=== PATIENT | female | born 1975 | race Caucasian/White ===

== ENCOUNTER 2020-03-01 11:18 | Emergency (ER) | payer SELFPAY ==
--- NOTE | 2020-03-01 11:51 | ER Document Report ---
ED Medical Screen (RME) - General Chief Complaint: Dizziness Stated Complaint: DIZZINESS Time Seen by Provider: 03/01/20 11:46 Notes: Patient is a 44-year-old female presents emergency department with a chief complaint of dizziness that started 5 days ago. Patient has also felt nauseous. Patient takes Phenergan on a regular basis. Patient is concerned for COVID-19. States that she also feels sometimes short of breath. Exam: Alert and oriented. I have greeted and performed a rapid initial assessment of this patient. A comprehensive ED assessment and evaluation of the patient, analysis of test results and completion of medical decision making process will be conducted by an additional ED providers. - Related Data Allergies/Adverse Reactions: codeine Allergy (Verified 03/01/20 11:46) dexamethasone [From Decadron] Allergy (Verified 03/01/20 11:46) latex Allergy (Verified 03/01/20 11:46) oxycodone [From OxyContin] Allergy (Verified 03/01/20 11:46) Physical Exam - Vital signs Vitals: Temp Pulse Resp BP Pulse Ox 98.2 F 72 18 125/65 98 03/01/20 11:47 03/01/20 11:47 03/01/20 11:47 03/01/20 11:47 03/01/20 11:47 Course - Vital Signs Vital signs: Temp Pulse Resp BP Pulse Ox 98.2 F 72 18 125/65 98 03/01/20 11:47 03/01/20 11:47 03/01/20 11:47 03/01/20 11:47 03/01/20 11:47
--- NOTE | 2020-03-01 12:34 | RADIOLOGY REPORT (SQ) ---
EXAM DESCRIPTION: CHEST SINGLE VIEW IMAGES COMPLETED DATE/TIME: 03/01/2020 12:26 pm REASON FOR STUDY: shortness of breath COMPARISON: None. EXAM PARAMETERS: NUMBER OF VIEWS: One view. TECHNIQUE: Single frontal radiographic view of the chest acquired. RADIATION DOSE: NA LIMITATIONS: None. FINDINGS: LUNGS AND PLEURA: No opacities, masses or pneumothorax. No pleural effusion. MEDIASTINUM AND HILAR STRUCTURES: No masses. Contour normal. HEART AND VASCULAR STRUCTURES: Heart normal in size. Normal vasculature. BONES: No acute findings. HARDWARE: None in the chest. OTHER: No other significant finding. IMPRESSION: NO ACUTE RADIOGRAPHIC FINDING IN THE CHEST. TECHNICAL DOCUMENTATION: JOB ID: [id number] 2010 [employer]- All Rights Reserved Reading location - IP/workstation name: [email or web address]
[2020-03-01 12:56] LABS: A TYPE INFLUENZA AG NEGATIVE (NEGATIVE); B INFLUENZA AG NEGATIVE (NEGATIVE)
[2020-03-01 13:56] LABS: APPEARANCE,URINE SLIGHTLY-CLOUDY; BILIRUBIN,URINE NEGATIVE (NEGATIVE); COLOR,URINE YELLOW; GLUCOSE, URINE NEGATIVE (NEGATIVE); KETONES,URINE NEGATIVE (NEGATIVE); LEUKOCYTE ESTERASE,URINE NEGATIVE (NEGATIVE); NITRITE,URINE NEGATIVE (NEGATIVE); PROTEIN,URINE NEGATIVE (NEGATIVE); URINE SPECIFIC GRAVITY 1.015; UROBILINOGEN,URINE NEGATIVE mg/dL (<2.0)
--- NOTE | 2020-03-01 16:35 | ER Document Report ---
Entered by SUNG SALAZRA SCRIBE 03/01/20 1243 Acting as scribe for:ANGELICA HERNANDEZ MD ED General - General Chief Complaint: Dizziness Stated Complaint: DIZZINESS Time Seen by Provider: 03/01/20 11:46 Information source: Patient Notes: This 44 year old female patient presents to the emergency department today with complaints of a sore throat, sinus congestion, vertigo, dizziness, and a mild non-productive cough the past x5 days. Patient also reports diarrhea the last x24 hours. Patient states she works at [employer] and has possible covid exposure. Patient states she has been taking dayquil, nyquil, antacid, phenergan, and meclizine at home. - Related Data Allergies/Adverse Reactions: codeine Allergy (Verified 03/01/20 11:46) dexamethasone [From Decadron] Allergy (Verified 03/01/20 11:46) latex Allergy (Verified 03/01/20 11:46) oxycodone [From OxyContin] Allergy (Verified 03/01/20 11:46) Past Medical History - General Information source: Patient - Social History Smoking Status: Never Smoker Cigarette use (# per day): No Family History: Reviewed & Not Pertinent Neurological Medical History: Reports: Hx Migraine Review of Systems - Review of Systems Constitutional: No symptoms reported EENT: See HPI, Throat pain, Vertigo, Other - sinus congestion Cardiovascular: See HPI, Dizziness Respiratory: See HPI, Cough - mild. denies: Sputum Gastrointestinal: See HPI, Diarrhea Genitourinary: No symptoms reported Female Genitourinary: No symptoms reported Musculoskeletal: No symptoms reported Skin: No symptoms reported Hematologic/Lymphatic: No symptoms reported Neurological/Psychological: No symptoms reported -: Yes All other systems reviewed and negative Physical Exam - Vital signs Vitals: Temp Pulse Resp BP Pulse Ox 98.2 F 72 18 125/65 98 03/01/20 11:47 03/01/20 11:47 03/01/20 11:47 03/01/20 11:47 03/01/20 11:47 - General General appearance: Alert, Other - Appears non-toxic - HEENT Head: Normocephalic, Atraumatic Eyes: Normal Pupils: PERRL Ears: Normal External canal: No: Erythema Tympanic membrane: Bulging - bilateral, Serous effusion - bilateral. No: Perforation Notes: Lateral gaze nystagmus. - Respiratory Respiratory status: No respiratory distress Chest status: Nontender Breath sounds: Normal Chest palpation: Normal - Cardiovascular Rhythm: Regular Heart sounds: Normal auscultation Murmur: No - Abdominal Inspection: Normal Distension: No distension Bowel sounds: Normal Tenderness: Nontender - Extremities General upper extremity: Normal inspection, Normal ROM General lower extremity: Normal inspection, Normal ROM. No: Edema - Neurological Neuro grossly intact: Yes Cognition: Normal Orientation: AAOx4 Jay Coma Scale Eye Opening: Spontaneous [place] Coma Scale Verbal: Oriented [place] Coma Scale Motor: Obeys Commands [place] Coma Scale Total: 15 Speech: Normal Motor strength normal: LUE, RUE, LLE, RLE Sensory: Normal - Psychological Associated symptoms: Normal affect, Normal mood - Skin Skin Temperature: Warm Skin Moisture: Dry Skin Color: Normal Course - Re-evaluation Re-evalutation: 03/01/20 16:21 Patient resting comfortably at this time. - Vital Signs Vital signs: Temp Pulse Resp BP Pulse Ox 98.2 F 72 18 125/65 98 03/01/20 11:47 03/01/20 12:00 03/01/20 12:00 03/01/20 12:00 03/01/20 12:00 03/01/20 16:21 Vital signs are stable. - Laboratory Laboratory results interpreted by me: Chest X-Ray 03/01/20 11:50 IMPRESSION: NO ACUTE RADIOGRAPHIC FINDING IN THE CHEST. No acute process on chest x-ray. 03/01/20 16:22 Laboratory results shows negative strep negative influenza AMB and Covid test pending. 03/01/20 16:23 urinalysis shows no acute process. - Diagnostic Test Radiology reviewed: Image reviewed Discharge - Discharge Clinical Impression: Suspected COVID-19 virus infection, URI (upper respiratory infection), Diarrhea Condition: Stable Disposition: HOME, SELF-CARE Instructions: Upper Respiratory Illness ([facility]), Vertigo ([facility]), Antinausea Medication ([facility]), Meclizine ([facility]), Fever ([facility]), Viral Syndrome ([facility]), COVID-19 Guidance for Persons Under Investigation Prescriptions: Amoxicillin 1 tab PO TID #30 tab Meclizine HCl [Antivert 25 mg Tablet] 25 mg PO TID PRN #21 tablet PRN Reason: Famotidine [Pepcid] 20 mg PO DAILY #20 tablet Ondansetron [Zofran Odt 4 mg Tablet] 1 - 2 tab PO Q4H PRN #15 tab.rapdis PRN Reason: For Nausea/Vomiting Forms: Return to Work I personally performed the services described in the documentation, reviewed and edited the documentation which was dictated to the scribe in my presence, and it accurately records my words and actions.
[2020-03-01 16:48] VITALS: BP 117/72
== END 2020-03-01 16:50 | disposition home or self-care (01) ==
LOC: ER 11:18
DX: J06.9 Acute upper respiratory infection, unspecified (principal); J02.9 Acute pharyngitis, unspecified; R09.89 Other specified symptoms and signs involving the circulatory and respiratory systems; R42 Dizziness and giddiness; R05 Cough; R19.7 Diarrhea, unspecified; H55.00 Unspecified nystagmus; Z88.6 Allergy status to analgesic agent; Z88.5 Allergy status to narcotic agent; Z91.040 Latex allergy status; Z88.8 Allergy status to other drugs, medicaments and biological substances; Z20.828 Contact with and (suspected) exposure to other viral communicable diseases
CPT/HCPCS: 99284; 87070; 87880; 87635; 81001; 87804; 71045; C9803

== ENCOUNTER 2020-05-08 09:52 | Emergency (ER) | payer SELFPAY ==
[2020-05-08] MEDS ORDERED: NORMAL SALINE 1000 ML 1,000 ML IV ONE (10:13)
[2020-05-08] MEDS ORDERED: ONDANSETRON HCL INJ/PF 4 MG/2 ML SDV IV ONE (10:13)
[2020-05-08] MEDS ORDERED: MORPHINE SULFATE 10 MG/ML INJ IV ONE ×2 (10:13→12:13)
--- NOTE | 2020-05-08 10:17 | ER Document Report ---
ED Medical Screen (RME) - General Chief Complaint: Nausea/Vomiting/Diarrhea Stated Complaint: NAUSEA,VOMITING,DIARRHEA Time Seen by Provider: 05/08/20 10:07 - HPI Notes: 05/08/20 10:15 44-year-old female presents to ED for evaluation of epigastric abdominal pain with nausea, vomiting for the last 2 days. Notes that she has history of gastric bypass. Notes that she has not had fever or chills. States that she still has a gallbladder present. Denies concerns for COVID. - Related Data Allergies/Adverse Reactions: adhesive tape Allergy (Verified 05/08/20 10:02) codeine Allergy (Verified 05/08/20 10:02) GI upset dexamethasone [From Decadron] Allergy (Verified 05/08/20 10:02) Flushing latex Allergy (Verified 05/08/20 10:02) Generalized edema oxycodone [From OxyContin] Allergy (Verified 05/08/20 10:02) Vomiting Home Medications: out of insurance no meds x2mon -DM2, Gerd, PTSD, anxiety/depression meds. Past Medical History - Social History Chew tobacco use (# tins/day): No Frequency of alcohol use: Rare Drug Abuse: None Neurological Medical History: Reports: Hx Migraine Physical Exam - Vital signs Vitals: Temp Pulse Resp BP Pulse Ox 98.0 F 85 20 118/65 100 05/08/20 10:00 05/08/20 10:00 05/08/20 10:00 05/08/20 10:00 05/08/20 10:00 Notes: General: No acute distress. Alert and oriented x3. Sitting comfortably in a stretcher. Skin: No jaundice, pallor, petechiae, or rashes. Warm and dry. Heart: Regular rate and rhythm. S1,S2. No murmurs, rubs, or gallops. Lungs: Clear to auscultation bilaterally. No wheezes, rhonchi, rales. Equal chest expansion. No retractions. Abdomen: Soft, tender to palpation in epigastric region, +lantigua's, nondistended. No masses. No CVA tenderness bilaterally. Back: No midline spinal TTP. No paraspinous muscular TTP. Neuro: GCS 15. Moving all extremities without discomfort. Psych: Mood and affect appropriate. Course - Vital Signs Vital signs: Temp Pulse Resp BP Pulse Ox 98.0 F 85 20 118/65 100 05/08/20 10:00 05/08/20 10:00 05/08/20 10:00 05/08/20 10:00 05/08/20 10:00
--- NOTE | 2020-05-08 11:02 | ER Document Report ---
ED General - General Chief Complaint: Nausea/Vomiting/Diarrhea Stated Complaint: NAUSEA,VOMITING,DIARRHEA Time Seen by Provider: 05/08/20 10:07 - HPI Notes: Chief complaint: Abdominal pain, nausea, vomiting and diarrhea History of present illness: 44-year-old female with past history of gastric bypass in 2017 as well as a history of endometriosis now presents with 24-hour history of nausea vomiting and diarrhea. Denies melena, hematochezia or hematemesis. Denies fever or respiratory symptoms. Reports diffuse abdominal cramping. Last menses 3 weeks ago described as normal. - Related Data Allergies/Adverse Reactions: adhesive tape Allergy (Verified 05/08/20 10:02) codeine Allergy (Verified 05/08/20 10:02) GI upset dexamethasone [From Decadron] Allergy (Verified 05/08/20 10:02) Flushing latex Allergy (Verified 05/08/20 10:02) Generalized edema oxycodone [From OxyContin] Allergy (Verified 05/08/20 10:02) Vomiting Home Medications: out of insurance no meds x2mon -DM2, Gerd, PTSD, anxiety/depression meds. 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: Family Family History: Reviewed & Not Pertinent Patient has homicidal ideation: No - Past Medical History Cardiac Medical History: Reports: None Pulmonary Medical History: Reports: None Neurological Medical History: Reports: Hx Migraine Endocrine Medical History: Reports: Hx Diabetes Mellitus Type 2 Renal/ Medical History: Reports: Other - History of endometriosis and pelvic adhesions Malignancy Medical History: Reports: None GI Medical History: Reports: Other - Previous gastric bypass Past Surgical History: Reports: Hx Gastric Bypass Surgery, Other - Cervical fusion Review of Systems - Review of Systems Notes: Constitutional: Negative for fever. HENT: Negative for sore throat. Eyes: Negative for visual changes. Cardiovascular: Negative for chest pain. Respiratory: Negative for shortness of breath. Gastrointestinal: As per HPI. Genitourinary: Negative for dysuria. Musculoskeletal: Negative for back pain. Skin: Negative for rash. Neurological: Negative for headaches, focal weakness or numbness. 10 point ROS negative except as marked above and in HPI. Physical Exam - Vital signs Vitals: Temp Pulse Resp BP Pulse Ox 98.0 F 85 20 118/65 100 05/08/20 10:00 05/08/20 10:00 05/08/20 10:00 05/08/20 10:00 05/08/20 10:00 - Notes Notes: GENERAL: Mildly obese middle-aged female appearing in no acute distress. SKIN: Good turgor no rashes. HEAD: Normocephalic atraumatic. EYES: PERRLA. EOMI. Conjunctivae and sclerae clear. EARS: CANALS AND TMS CLEAR. NOSE: CLEAR. MOUTH: Moist mucosa. Good dentition. No stridor or edema. No drooling. NECK: Healed surgical scar right anterior neck area from previous cervical fusion. Supple. No masses or thyromegaly. No adenopathy. Carotids 2+ without bruits. No JVD. BACK: Symmetrical without tenderness. CHEST: Respirations unlabored. Breath sounds clear and symmetrical. HEART: Regular rhythm. No murmur gallop or rub. ABDOMEN: Mildly obese. Mild diffuse abdominal tenderness. Soft without masses, organomegaly or rebound. Bowel sounds normally active. No bruits. GENITALIA: Deferred. EXTREMITIES: No edema. No calf tenderness. Cap refill less than 1.5 seconds. Dorsalis pedis and posterior tibial pulses 3+ and symmetrical. NEUROLOGICAL: GCS 15. Alert and oriented x3. Normal gait. Fluent speech. Cranial nerves II through XII intact. Sensorimotor and cerebellar normal. Normal tone. PSYCHIATRIC: Appropriate affect. Course - Re-evaluation Re-evalutation: 05/08/20 11:01 Patient is receiving IV fluids and we will check routine labs including urinalysis, CBC, comprehensive metabolic profile and serum lipase. We are going to obtain a comprehensive nasal swab for viral respiratory illnesses including Covid. IV Zofran. Will obtain CT abdomen pelvis with IV and oral contrast. 05/08/20 14:15 Patient tested positive for typical coronavirus but not for COVID-19. CT abdomen/pelvis shows constipation only. CBC, urinalysis and chemistry profile unremarkable. Findings, clinical impression and plan of treatment have been discussed with patient/family. Understanding of current findings and recommendations has been acknowledged by them and there is agreement regarding disposition and follow-up. - Vital Signs Vital signs: Temp Pulse Resp BP Pulse Ox 98.0 F 85 20 118/65 100 05/08/20 10:00 05/08/20 10:00 05/08/20 10:00 05/08/20 10:00 05/08/20 10:00 - Laboratory Results Result Diagrams: 05/08/20 11:07 05/08/20 11:07 Laboratory Results Interpreted: 05/08/20 05/08/20 05/08/20 11:07 11:07 11:07 Total Protein 6.1 L Urine Nitrite POSITIVE H Ur Leukocyte Esterase TRACE H Coronavirus HKU1 (PCR) DETECTED H Critical Laboratory Results Reviewed: No Critical Results - Radiology Results Critical Radiology Results Reviewed: No Critical Results - EKG Interpretation by Me Additional EKG results interpreted by me: 05/08/20 11:02 Twelve-lead EKG reviewed by me contemporaneously: 1025 hrs. Indication for study: Upper abdominal pain Rhythm: Normal sinus Rate: 72 Intervals: Normal intervals QRS axis: +[address]/T wave changes: None Comparison with prior tracing: None Interpretation: Normal sinus rhythm Discharge - Discharge Clinical Impression: Acute viral syndrome, Abdominal pain Constipation Qualifiers: Constipation type: unspecified constipation type Qualified Code(s): K59.00 - Constipation, unspecified Condition: Stable Disposition: HOME, SELF-CARE Additional Instructions: Increase oral fluids. Work note is been provided for the next 3 days. Take MiraLAX as directed. Use additional nausea medication as needed. Follow-up with your primary care physician within the next 3 to 5 days. Return here as needed for new or worsening symptoms: Pain that is worsening or unimproved Uncontrolled vomiting High fever or shaking chills Overall worsening Prescriptions: Ondansetron [Zofran Odt 4 mg Tablet] 1 - 2 tab PO Q4H PRN #15 tab.rapdis PRN Reason: For Nausea/Vomiting Forms: Return to Work
[2020-05-08 11:46] LABS: ABSOLUTE BASOPHILS # (AUTO) 0.1 10^3/uL (0.0-0.2); ABSOLUTE EOSINOPHILS # (AUTO) 0.2 10^3/uL (0.0-0.6); ABSOLUTE LYMPHOCYTES (AUTO) 2.1 10^3/uL (0.5-4.7); ABSOLUTE MONOCYTES (AUTO) 0.4 10^3/uL (0.1-1.4); ABSOLUTE NEUT (AUTO) 4.1 10^3/uL (1.7-8.2); BASOPHILS % (AUTO) 0.9 % (0-2); EOSINOPHILS % (AUTO) 2.5 % (0-6); HEMATOCRIT 38.7 % (36.0-47.0); HEMOGLOBIN 12.7 g/dL (12.0-15.5); LYMPHOCYTES % (AUTO) 31.2 % (13-45); MEAN CORPUSCULAR HEMOGLOBIN 28.6 pg (27.0-33.4); MEAN CORPUSCULAR HGB CONC 32.8 g/dL (32.0-36.0); MEAN CORPUSCULAR VOLUME 87 fl (80-97); MONOCYTES % (AUTO) 5.9 % (3-13); PLATELET COUNT 218 10^3/uL (150-450); RED BLOOD COUNT 4.44 10^6/uL (3.72-5.28); RED CELL DISTRIBUTION WIDTH 13.6 % (11.5-14.0); SEGMENTED NEUTROPHILS % (AUTO) 59.5 % (42-78); TOTAL CELLS COUNTED % (AUTO) 100 %; WHITE BLOOD COUNT 6.9 10^3/uL (4.0-10.5)
[2020-05-08 11:52] LABS: APPEARANCE,URINE SLIGHTLY-CLOUDY; BILIRUBIN,URINE NEGATIVE (NEGATIVE); COLOR,URINE YELLOW; GLUCOSE, URINE NEGATIVE (NEGATIVE); KETONES,URINE NEGATIVE (NEGATIVE); LEUKOCYTE ESTERASE,URINE TRACE (NEGATIVE); NITRITE,URINE POSITIVE (NEGATIVE); PROTEIN,URINE NEGATIVE (NEGATIVE); URINE SPECIFIC GRAVITY 1.004; UROBILINOGEN,URINE NEGATIVE mg/dL (<2.0)
[2020-05-08 12:12] LABS: ALBUMIN 3.5 g/dL (3.5-5.0); ALKALINE PHOSPHATASE 58 U/L (38-126); ANION GAP 5 (5-19); ASPARTATE AMINO TRANSFERASE 24 U/L (14-36); BILIRUBIN,DIRECT 0.2 mg/dL (0.0-0.4); BILIRUBIN,TOTAL 0.3 mg/dL (0.2-1.3); BLOOD UREA NITROGEN 9 mg/dL (7-20); CALCIUM 8.9 mg/dL (8.4-10.2); CARBON DIOXIDE 29 mmol/L (22-30); CHLORIDE 104 mmol/L (98-107); GLUCOSE 83 mg/dL (75-110); POTASSIUM 4.2 mmol/L (3.6-5.0); TOTAL PROTEIN 6.1 g/dL (6.3-8.2)
[2020-05-08 12:45] LABS: URINE AMPHETAMINES SCREEN NEGATIVE; URINE BARBITURATES SCREEN NEGATIVE; URINE BENZODIAZEPINES SCREEN NEGATIVE; URINE COCAINE SCREEN NEGATIVE; URINE MARIJUANA (THC) SCREEN NEGATIVE; URINE METHADONE SCREEN NEGATIVE; URINE PHENCYCLIDINE SCREEN NEGATIVE
--- NOTE | 2020-05-08 13:54 | RADIOLOGY REPORT (SQ) ---
EXAM DESCRIPTION: CT ABD/PELVIS WITH IV ORAL IMAGES COMPLETED DATE/TIME: 05/08/2020 1:41 pm REASON FOR STUDY: Abdominal pain: Status post gastric bypass COMPARISON: None. TECHNIQUE: CT scan of the abdomen and pelvis performed using helical scanning technique with dynamic intravenous contrast injection. No oral contrast. Images reviewed with lung, soft tissue, and bone windows. Reconstructed coronal and sagittal MPR images reviewed. Delayed images for evaluation of the urinary system also acquired. All images stored on PACS. All CT scanners at this facility use dose modulation, iterative reconstruction, and/or weight based d osing when appropriate to reduce radiation dose to as low as reasonably achievable (ALARA). [facility]: Dose Right [facility]: CareDose [facility]: Dose Right [facility]: Teradose 4D [facility]: [employer] CONTRAST TYPE AND DOSE: contrast/concentration: Isovue 350.00 mmol/ml; Total Contrast Delivered: 94. 0 ml; Total Saline Delivered: 54.3 ml RENAL FUNCTION: BUN 9 creatinine 0.69 RADIATION DOSE: . LIMITATIONS: None. FINDINGS: LOWER CHEST: No significant findings. No nodules or infiltrates. LIVER: Normal size. No masses. No dilated ducts. SPLEEN: Mild splenomegaly. The splenic index is 606. PANCREAS: No masses. No significant calcifications. No adjacent inflammation or peripancreatic fluid collections. Pancreatic duct not dilated. GALLBLADDER: Surgically absent. ADRENAL GLANDS: No significant masses or asymmetry. RIGHT KIDNEY AND URETER: No solid masses. No significant calcifications. No hydronephrosis or hyd roureter. LEFT KIDNEY AND URETER: No solid masses. No significant calcifications. No hydronephrosis or hydr oureter. AORTA AND VESSELS: No aneurysm. No dissection. Renal arteries, SMA, celiac without stenosis. RETROPERITONEUM: No retroperitoneal adenopathy, hemorrhage or masses. BOWEL AND PERITONEAL CAVITY: There is considerable bowel gas. There is no bowel obstruction. Retain ed stool is present. APPENDIX: Not identified. PELVIS: No mass. No free fluid. Normal bladder. ABDOMINAL WALL: No masses. No hernias. BONES: No significant or acute findings. OTHER: No other significant finding. IMPRESSION: Mild splenomegaly. Constipation. No acute finding in the abdomen or pelvis. TECHNICAL DOCUMENTATION: JOB ID: [id number] Quality ID # [id number]: Final reports with documentation of one or more dose reduction techniques (e.g., Au tomated exposure control, adjustment of the mA and/or kV according to patient size, use of iterative reconstruction technique) 2010 [employer]- All Rights Reserved Reading location - IP/workstation name: [email or web address]
[2020-05-08 14:36] VITALS: BP 142/75
--- NOTE | 2020-05-08 17:39 | EKG REPORT ---
SEVERITY:- NORMAL ECG - SINUS RHYTHM : Confirmed by: Rocky Bingham MD 08-May-2020 17:38:02
== END 2020-05-08 14:36 | disposition home or self-care (01) ==
LOC: ER 09:52
DX: B34.9 Viral infection, unspecified (principal); K59.00 Constipation, unspecified; R11.2 Nausea with vomiting, unspecified; R19.7 Diarrhea, unspecified; R10.13 Epigastric pain; E11.9 Type 2 diabetes mellitus without complications; Z98.84 Bariatric surgery status; Z91.040 Latex allergy status
CPT/HCPCS: 93005; 96376; 99285; 96361; 96374; 96375; 36415; 83690; 85025; 0202U; 81025; 80053; 81001; 80307; 74177; 93010; J2270; J2405; J7030